=== PATIENT | female | born 1950 | race Caucasian/White ===

== ENCOUNTER 2018-07-16 10:05 | Emergency (ER) | payer OTHER ==
--- NOTE | 2018-07-16 10:12 | EDPHY ---
H & P Stated Complaint: "weak extremities",hands/feet feel cold;not feeling well since Wed Time Seen by Provider: 07/16/18 10:12 - Personal History Current Tetanus Diphtheria and Acellular Pertussis (TDAP): Yes - Medical/Surgical History Other PMH: aortic stenosis - Social History Smoking Status: Never smoked Constitutional: Initial Vital Signs Temperature (C) 36.5 C 07/16/18 10:06 Heart Rate 75 07/16/18 10:06 Respiratory Rate 16 07/16/18 10:06 Blood Pressure 162/128 H 07/16/18 10:06 O2 Sat (%) 98 07/16/18 10:06 O2 Delivery Mode Room Air Allergies/Adverse Reactions: seafood Allergy (Mild, Uncoded 07/16/18 10:10) n/v Home Medications: Medication Instructions Recorded Cephalexin [Keflex (RX)] 500 mg PO TID #30 cap 07/16/18 Phenazopyridine HCl [Pyridium] 200 mg PO TID #6 tab 07/16/18 Medical Decision Making - Diagnostics Imaging Results: Imaging Impressions Brain MRI 07/16/18 10:27 Impression: Mild to moderate periventricular and deep hemispheric white matter change bilaterally. This is nonspecific and can be seen with small vessel ischemic disease, postinfectious/postinflammatory etiology, or gliosis from migraine or trauma. No evidence for acute infarct. Results called and discussed with Jordna Gutierrez MD on July 16, 2018 at 1255 hours. Cervical Spine MRI 07/16/18 10:29 Impression: 1. No evidence for abnormal signal intensity in the cervical cord or abnormal enhancement. 2. Multilevel degenerative disk and degenerative joint disease cervical spine, most significant at C5-C6, as detailed above by level. Results called and discussed with Jordan Gutierrez MD on July 16, 2018 at 1234 hours. Lumbar Spine MRI 07/16/18 10:39 Impression: Multilevel degenerative disk and degenerative joint disease lumbar spine, most significant at L4-L5. Please see detailed description by level above. Results called and discussed with Jordan Gutierrez MD on July 16, 2018 at 1247 hours. Imaging: Discussed imaging studies w/ call or contact centre coach Radiologist, I viewed and interpreted images myself ED Course/Re-evaluation: CHIEF COMPLAINT: Extremity weakness HISTORY OF PRESENT ILLNESS: The patient is a 68 y/o female complaining of extremity weakness onset Tuesday night, 4 days ago. She describes weakness extending from her elbows to her fingertips and knees to her toes bilaterally. She cannot tell if sensation began in lower extremities or upper extremities first. She has associated uncharacteristic fatigue. She says "it just like hit me and I was real clammy." She feels unsteady due to weakness rather than difficulty balancing. She now feels quite anxious due to these abnormal symptoms and describes generally feeling "off." She has some increased urination , but notes she has been drinking a lot of water recently and otherwise denies urinary symptoms. No fever, cough, rhinorrhea, sore throat. No recent vaccinations or changes in medications. Occasional aspirin use. REVIEW OF SYSTEMS: A comprehensive 10 system review of systems is otherwise negative aside from elements mentioned in the history of present illness and medical decision making. PHYSICAL EXAM: HR, BP, O2 Sat, RR. Temp noted General Appearance: Alert, well hydrated, appropriate, and non-toxic appearing. Head: Atraumatic without scalp tenderness or obvious injury Eyes: Pupils equal, round, reactive to light and accommodation, EOMI, no trauma , no injection. Ears: Clear bilaterally, no perforation, normal landmarks Nose: Atraumatic, no rhinorrhea, clear. Throat: There is no erythema or exudates, no lesions, normal tonsils, mucus membranes moist. Neck: Supple, nontender, no lymphadenopathy. Respiratory: No retractions, no distress, no wheezes, and no accessory muscle use. Lungs are clear to auscultation bilaterally. Cardiovascular: Regular rate and rhythm, no murmurs, rubs, or gallops. Good capillary refill all extremities. Gastrointestinal: Abdomen is soft, nontender, non-distended, no masses, no rebound, no guarding, no peritoneal signs. Musculoskeletal: Normal active ROM of all extremities, atraumatic. Neurological: Alert, appropriate, and interactive. The patient has normal DTRs and non-focal cranial nerves, motor, sensory, and cerebellar exam. Skin: No rashes, good turgor, no nodules on palpation. Past medical history: Hypercholesterolemia - 20mg Simvastatin; rheumatic fever as a child; recent echocardiogram showed moderate aortic stenosis. Past surgical history: Family history: Noncontributory Social history: at bedside ([place] at , on [facility] Board). PCP: Dr. Salas. DIAGNOSTICS/PROCEDURES/CRITICAL CARE TIME: Head MRI: negative Cervical Spine MRI: negative Lumbar Spine MRI: negative DIFFERENTIAL DIAGNOSIS: The differential diagnosis for the patient's neurologic deficits included but was not limited to peripheral causes, central causes including CVA, TIA, electrolyte abnormalities and dehydration, cardiogenic causes, atypical causes like migraine syndrome. MEDICAL DECISION MAKING: This is a normally healthy 68 y/o female who presents with a 4-day history of what sounds like subjective ascending motor weakness in all 4 extremities associated with a general feeling of malaise. She has no objective weakness on exam, but does appear quite anxious. Presentation could indicate infectious cause or neurologic cause like Guillain-Swiss syndrome. Plan for IV, labs, UA, and likely neuroimaging. Will consult with neurology. Patient declined Ativan. 1039: Consulted with Dr. Goldstein, neurologist. He recommends MRI imaging of her head, neck, and lumbar spine. UA indicates UTI. 1gm IV Ceftriaxone ordered. MRIs are all negative. Reassessed patient and discussed findings. Suspect majority of her symptoms are due to UTI and possibly anxiety or perhaps hyperventilation causing extremity sensation changes related to this. She feels relieved with UTI diagnosis. She will be discharged on course of Keflex and Pyridium with referral to PCP for follow up. Return precautions discussed. She is comfortable with this plan. - Data Points Laboratory Results: Laboratory Results 07/16/18 10:40 07/16/18 10:40 07/16/18 07/16/18 07/16/18 10:40 10:40 10:40 WBC 5.43 10^3/uL 10^3/uL (3.80-9.50) RBC 5.16 10^6/uL 10^6/uL (4.18-5.33) Hgb 16.1 g/dL g/dL (12.6-16.3) Hct 48.4 % H % (38.0-47.0) MCV 93.8 fL fL (81.5-99.8) MCH 31.2 pg pg (27.9-34.1) MCHC 33.3 g/dL g/dL (32.4-36.7) RDW 13.1 % % (11.5-15.2) Plt Count 285 10^3/uL 10^3/uL (150-400) MPV 10.3 fL fL (8.7-11.7) Neut % (Auto) 65.0 % % (39.3-74.2) Lymph % (Auto) 25.6 % % (15.0-45.0) [place] % (Auto) 5.7 % % (4.5-13.0) Eos % (Auto) 2.8 % % (0.6-7.6) Baso % (Auto) 0.7 % % (0.3-1.7) Nucleat RBC Rel Count 0.0 % % (0.0-0.2) Absolute Neuts (auto) 3.53 10^3/uL 10^3/uL (1.70-6.50) Absolute Lymphs (auto) 1.39 10^3/uL 10^3/uL (1.00-3.00) Absolute Monos (auto) 0.31 10^3/uL 10^3/uL (0.30-0.80) Absolute Eos (auto) 0.15 10^3/uL 10^3/uL (0.03-0.40) Absolute Basos (auto) 0.04 10^3/uL 10^3/uL (0.02-0.10) Absolute Nucleated RBC 0.00 10^3/uL 10^3/uL (0-0.01) Immature Gran % 0.2 % % (0.0-1.1) Immature Gran # 0.01 10^3/uL 10^3/uL (0.00-0.10) ESR 16 MM/HR MM/HR (0-30) Sodium 141 mEq/L mEq/L (135-145) Potassium 4.9 mEq/L mEq/L (3.3-5.0) Chloride 107 mEq/L mEq/L (97-110) Carbon Dioxide 23 mEq/l mEq/l (22-31) Anion Gap 11 mEq/L mEq/L (8-16) BUN 13 mg/dL mg/dL (7-23) Creatinine 0.7 mg/dL mg/dL (0.6-1.0) Estimated GFR > 60 Glucose 102 mg/dL H mg/dL (70-100) Calcium 10.0 mg/dL mg/dL (8.5-10.4) Total Bilirubin 1.3 mg/dL mg/dL (0.1-1.4) Conjugated Bilirubin 0.3 mg/dL mg/dL (0.0-0.5) Unconjugated Bilirubin 1.0 mg/dL mg/dL (0.0-1.1) AST 41 IU/L IU/L (14-46) ALT 38 IU/L IU/L (9-52) Alkaline Phosphatase 67 IU/L IU/L (38-126) C-Reactive Protein < 5.0 mg/L mg/L (<10.0) Total Protein 8.8 g/dL H g/dL (6.3-8.2) Albumin 5.1 g/dL H g/dL (3.5-5.0) Lipase 114 IU/L IU/L (23-300) Specimen Hemolysis 138 Urine Color Urine Appearance Urine pH Ur Specific [place] Urine Protein Urine Ketones Urine Blood Urine Nitrate Urine Bilirubin Urine Urobilinogen Ur Leukocyte Esterase Urine RBC Urine WBC Ur Epithelial Cells Urine Bacteria Urine Glucose NITZA Screen Pending 07/16/18 10:35 WBC RBC Hgb Hct MCV MCH MCHC RDW Plt Count MPV Neut % (Auto) Lymph % (Auto) [place] % (Auto) Eos % (Auto) Baso % (Auto) Nucleat RBC Rel Count Absolute Neuts (auto) Absolute Lymphs (auto) Absolute Monos (auto) Absolute Eos (auto) Absolute Basos (auto) Absolute Nucleated RBC Immature Gran % Immature Gran # ESR Sodium Potassium Chloride Carbon Dioxide Anion Gap BUN Creatinine Estimated GFR Glucose Calcium Total Bilirubin Conjugated Bilirubin Unconjugated Bilirubin AST ALT Alkaline Phosphatase C-Reactive Protein Total Protein Albumin Lipase Specimen Hemolysis Urine Color PALE YELLOW Urine Appearance CLEAR Urine pH 6.0 (5.0-7.5) Ur Specific [place] 1.002 (1.002-1.030) Urine Protein NEGATIVE (NEGATIVE) Urine Ketones NEGATIVE (NEGATIVE) Urine Blood 1+ H (NEGATIVE) Urine Nitrate NEGATIVE (NEGATIVE) Urine Bilirubin NEGATIVE (NEGATIVE) Urine Urobilinogen NEGATIVE EU EU (0.2-1.0) Ur Leukocyte Esterase 3+ H (NEGATIVE) Urine RBC 1-3 /hpf /hpf (0-3) Urine WBC 50-182 /hpf H /hpf (0-3) Ur Epithelial Cells TRACE /lpf /lpf (NONE-1+) Urine Bacteria TRACE /hpf H /hpf (NONE SEEN) Urine Glucose NEGATIVE (NEGATIVE) NITZA Screen Medications Given: Discontinued Medications Ceftriaxone Sodium/Dextrose (Rocephin 1 Gm (Premix)) 50 mls @ 100 mls/hr IV EDNOW ONE PRN Reason: Protocol Stop: 07/16/18 11:24 Last Admin: 07/16/18 12:39 Dose: 50 mls Departure - Departure Disposition: Home, Routine, Self-Care Clinical Impression: UTI (urinary tract infection) Qualifiers: Urinary tract infection type: site unspecified Hematuria presence: without hematuria Qualified Code(s): N39.0 - Urinary tract infection, site not specified Condition: Good Instructions: Urinary Tract Infection in Women (ED) Additional Instructions: 1. Take Keflex as prescribed for UTI. Be sure to complete the entire prescription even if you feel better. 2. Use Pyridium as directed for the next two days. 3. Follow up with your primary care provider this week for any unimproved symptoms. 4. Return to the ED for severe pain, worsening weakness, numbness, severe headache, fever, or other worsening of condition. Referrals: Dominique Salas MD [Primary Care Provider] - As per Instructions Fabian Goldstein MD [Medical Doctor] - As per Instructions Prescriptions: Cephalexin [Keflex (RX)] 500 mg PO TID #30 cap Phenazopyridine HCl [Pyridium] 200 mg PO TID #6 tab Report Scribed for: Jordan Gutierrez Report Scribed by: Jennifer Agrawal Date of Report: 07/16/18 Time of Report: 10:17
[2018-07-16] MEDS ORDERED: GADOBUTROL 10 ML VIAL IVP ONE (10:45)
[2018-07-16 10:57] LABS: PLATELET COUNT 285 10^3/uL (150-400)
[2018-07-16 13:12] VITALS: BP 140/91
== END 2018-07-16 13:12 | disposition home or self-care (01) ==
DX: N39.0 Urinary tract infection, site not specified (principal)
CPT/HCPCS: 96374; A9585; J0696